=== PATIENT | female | born 2000 | race Caucasian/White ===

== ENCOUNTER 2022-10-01 06:20 | Emergency (ER) | payer BC ==
[2022-10-01] MEDS ORDERED: Percocet 325 MG1 TAB PO (06:34)
[2022-10-01] MEDS ORDERED: CYCLOBENZAPRINE10 MG PO (06:34)
== END 2022-10-01 06:45 | disposition home or self-care (01) ==
LOC: ED 06:20
DX: M54.41 Lumbago with sciatica, right side (principal)

== ENCOUNTER 2022-10-12 02:30 | Emergency (ER) | payer BC ==
[~2022-10-12] VITALS: Ht 172.7 cm; Wt 113.4 kg
[~2022-10-12 02:30] MED LIST: CYCLOBENZAPRINE10 MG PO; Percocet 325 MG1 TAB PO
[2022-10-12 03:20] LABS: BUN 10 mg/dl (9-23); CHLORIDE 108 mmol/L (98-107); POTASSIUM 3.8 mmol/L (3.4-5.1)
[2022-10-12] MEDS ORDERED: METHOCARBAMOL750 M1 PO (03:24)
[2022-10-12] MEDS ORDERED: NAPROXEN250 MG PO (03:24)
== END 2022-10-12 03:44 | disposition home or self-care (01) ==
LOC: ED 02:30
PROVIDERS: Internal Medicine
DX: S39.012A Strain of muscle, fascia and tendon of lower back, initial encounter (principal); X50.1XXA Overexertion from prolonged static or awkward postures, initial encounter; Y93.89 Activity, other specified; Y92.009 Unspecified place in unspecified non-institutional (private) residence as the place of occurrence of the external cause; Y99.8 Other external cause status